=== PATIENT | female | born 2005 | race Caucasian/White ===

== ENCOUNTER 2024-12-15 12:25 | Outpatient (REF) | payer BC, SELFPAY ==
--- OUTSIDE RECORDS SUMMARY | 2024-12-15 11:00 | XMS_ITS | Encounter Summary ---
Author Organization [facility] Address [address] [place] [address] Care Team Providers Care Maitre D' Name Role Phone Jailene Jacobson MD Primary Care Provider [phone] Reason for Visit * Reason Comments Gynecologic Exam Encounter Details Date Type Department Care Team (Latest Contact Info) Description 12/15/2024 11:00 AM EDT Procedure Visit [facility] [address] [place] [address] Naima Qiu PA [address] [facility] [address] [facility] [address] [place], [facility]11 Well woman exam with routine gynecological exam; UTI symptoms; Encounter for initial prescription of contraceptive pills Social History Tobacco Use Types Packs/Day Years Used Date Smoking Tobacco: Never Smokeless Tobacco: Never Alcohol Use Standard Drinks/Week Comments Never 0 (1 standard drink = 0.6 oz pur e alcohol) Comments No Sex and Gender Information Value Date Recorded Sex Assigned at Not on file Legal Sex Female 7:01 PM EDT Gender Identity Not on file Sexual Orientation Not on file documented as of this encounter Last Filed Vital Signs Vital Sign Reading Time Taken Comments Blood Pressure 110/62 12/15/2024 11:08 AM EDT Pulse - - Temperature - - Respiratory Rate - - Oxygen Saturation - - Inhaled Oxygen Concentration - - Weight 59.9 kg (132 lb) 12/15/2024 11:08 AM EDT Height 162.6 cm (5' 4 ) 12/15/2024 11:08 AM EDT Body Mass Index 22.66 12/15/2024 11:08 AM EDT documented in this encounter Progress Notes * LAYLA Woodward - 12/15/2024 11:00 AM EDT Reason for Appointment: Patient ID: Minda Daniels is a 19 y.o. female who presents for Gynecologic Exam Patient presents today for Annual Exam. MEDICATIONS Current Outpatient Medications Medication Instructions triamcinolone (Kenalog) 0.1 % cream 1 application , Topical, 2 times daily ALLERGIES Allergies Allergen Reactions Omnicef [Cefdinir] Hives PROBLEMS Active Ambulatory Problems Diagnosis Date Noted No Active Ambulatory Problems Resolved Ambulatory Problems Diagnosis Date Noted No Resolved Ambulatory Problems Past Medical History: Diagnosis Date IUD contraception 11/25/2022 HISTORY PAST MEDICAL HISTORY SOCIAL HISTORY Past Medical History: Diagnosis Date IUD contraception 11/25/2022 MIRENA Social History Tobacco Use Smoking status: Never Smokeless tobacco: Never Substance Use Topics Alcohol use: Never Drug use: Never FAMILY HISTORY No family history on file. SURGICAL HISTORY History reviewed. No pertinent surgical history. REVIEW OF SYSTEMS Review of Systems: Review of Systems All other systems reviewed and are negative. OBJECTIVE Objective: Physical Exam Constitutional: Appearance: Normal appearance. She is well-developed. Genitourinary: Vulva normal. Right Adnexa: not tender and no mass present. Left Adnexa: not tender and no mass present. No cervical discharge. Breasts: Breasts are soft. Right: Normal. Left: Normal. HENT: Head: Normocephalic. Nose: Nose normal. Mouth/Throat: Mouth: Mucous membranes are moist. Cardiovascular: Rate and Rhythm: Normal rate and regular rhythm. Pulmonary: Effort: Pulmonary effort is normal. Breath sounds: Normal breath sounds. Abdominal: General: Bowel sounds are normal. There is no distension. Palpations: Abdomen is soft. Tenderness: There is no abdominal tenderness. There is no guarding or rebound. Musculoskeletal: General: No swelling. Normal range of motion. Cervical back: Normal range of motion. Right lower leg: No edema. Left lower leg: No edema. Neurological: General: No focal deficit present. Mental Status: She is alert and oriented to person, place, and time. Skin: General: Skin is warm and dry. Psychiatric: Mood and Affect: Mood normal. Behavior: Behavior normal. Vitals and nursing note reviewed. Exam conducted with a revenue cycle administrator present. Vitals: Estimated body mass index is 22.66 kg/m?? as calculated from the following: Height as of this encounter: 5' 4 . Weight as of this encounter: 132 lb. BP: 110/62 No LMP recorded (lmp unknown). (Menstrual status: IUD). ASSESSMENT & PLAN ICD-10-CM 1. Well woman exam with routine gynecological exam Z01.419 Pap Smear Annual Exam: Patient presents today for an annual exam. Patient states she is doing well and has no complaints. Pap was obtained without difficulty. Patient currently has an IUD and will be having it removed in December. Pt wants to talk about oral b/c and considering to get on the pill while waiting for the IUD to come out. Script sent in for control and she is having UTI symptoms and we will send scrip t in for her. Follow Up: Patient is to return in one year for annual unless needed otherwise. Documented by Lelia Morin LPN on behalf of: LAYLA Woodward documented in this encounter Plan of Treatment Upcoming Encounters Date Type Department Care Team (Late st Contact Info) Description 01/09/2025 9:30 AM EST Procedure Visit [facility] [address] [place] [id number] Bernard Lemons DO [address] [facility] [address] [place], [place] [id number] Scheduled Orders Name Type Priority Associated Diagnoses Orde r Schedule Pap Smear Pathology and Cytology Routine Well woman exam with routine gynecological exam Ordered: 12/15/2024 Urine culture Microbiology Routine UTI symptoms Ordered: 12/15/2024 documented as of this encounter Procedures Procedure Name Priority Date/Time Associated Diagnosis Comments POCT URINALYSIS DIPSTICK Routine 12/15/2024 11:41 AM EDT UTI symptoms documented in this encounter Results * POCT urinalysis dipstick manually resulted (12/15/2024 11:41 AM EDT) Color, UA Yellow Clarity, UA Clear Glucose, UA Negative Negative - 2000(110) ++++ mg/dL Bilirubin, UA Negative Negative - 4(70) +++ mg/dL Ketones, UA Negative Negative - 160(16) ++++ mg/dL Spec Grav, UA 1.015 1 - 1.03 Blood, UA Negative Negative - 50 Bhupendra/mcL pH, UA 7.0 5 - 9 Protein, UA Negative Negative - 2000(20) ++++ mg/dL Urobilinogen, UA 1.0 0.2 - 12 mg/dL Leukocytes, UA Negative Negative - 500+++ Gildardo/mcL Nitrite, UA Negative Negative - Positive Urine 12/15/2024 11:4 1 AM EDT Naima RICH POINT OF CARE TEST ENTER/EDIT OR DERABLES Final Result documented in this encounter Visit Diagnoses Diagnosis Well woman exam with routine gynecological exam Routine gynecological examination UTI symptoms Encounter for initial prescription of contraceptive pills documented in this encounter Care Teams Maitre D' Relationship Specialty Start Date End Date Jailene Jacobson MD [address] [place] [phone] PCP - General Family Medicine 09/18/22 documented as of this encounter
--- OUTSIDE RECORDS SUMMARY | 2024-12-15 12:31 | XMS_ITS | Clinical Summary ---
Author Organization [facility] Address [address] [facility] [place] [address] Care Team Providers Care Deck Engineer Name Role Phone Jailene Jacobson MD Primary Care Provider [phone] Allergies Active Allergy Reactions Criticality Noted Date Comments Cefdinir Hives 09/18/2022 Medications triamcinolone (Kenalog) 0.1 % cream Apply 1 application topically in the morning and 1 application before bedtime. 3 Active norgestimate-ethi nyl estradiol (Sprintec 28) 0.25-35 MG-MCG tabletIndications :Encounter for initial prescription of contraceptive pills Take 1 tablet by mouth Daily Take 1 tablet by mouth daily 28 tablet 11 5 025 Active phenazopyridine (Pyridium) 100 MG tabletIndications :UTI symptoms Take 1 tablet (100 mg) by mouth 3 (three) times a day as needed for bladder spasms for up to 2 days 6 tablet 5 025 Active cephalexin (Keflex) 500 MG capsuleIndication s:UTI symptoms Take 1 capsule (500 mg) by mouth in the morning and 1 capsule (500 mg) in the evening and 1 capsule (500 mg) before bedtime. Do all this for 7 days. 21 capsule 5 025 Active Hospital, Clinic, or Other Facility Administered Medication Ordered Dose Route Frequency Start Date End Date Status Levonorgestrel intrauterine device 52 mgIndications:Encounter for insertion of Mirena IUD 52 mg IU Continuous 11/25/2022 A ctive Active Problems No known active problems Encounters Date Type Department Care Team Description 12/15/2024 11:00 AM EDT Procedure Visit [facility] [address] [place] [phone] Naima Qiu PA Well woman exam with routine gynecological exam; UTI symptoms; Encounter for initial prescription of contraceptive pills 12/15/2024 Bamboo flowsheet [facility] [address] [place] [address] [place] [phone] Naima Qiu PA from Last 3 Months Social History Tobacco Use Types Packs/Day Years Used Date Smoking Tobacco: Never Smokeless Tobacco: Never Tobacco Cessation:Counseling Given: Not Answered Alcohol Use Standard Drinks/Week Comments Never 0 (1 standard drink = 0.6 oz pur e alcohol) Comments No Sex and Gender Information Value Date Recorded Sex Assigned at Not on file Legal Sex Female 7:01 PM EDT Gender Identity Not on file Sexual Orientation Not on file Last Filed Vital Signs Vital Sign Reading Time Taken Comments Blood Pressure 110/62 12/15/2024 11:08 AM EDT Pulse 150 11/24/2023 6:30 PM EDT Temperature 36.4 C (97.5 F) 11/24/2023 6:30 PM EDT Respiratory Rate - - Oxygen Saturation 98% 11/24/2023 6:30 PM EDT Inhaled Oxygen Concentration - - Weight 59.9 kg (132 lb) 12/15/2024 11:08 AM EDT Height 162.6 cm (5' 4 ) 12/15/2024 11:08 AM EDT Body Mass Index 22.66 12/15/2024 11:08 AM EDT Plan of Treatment Upcoming Encounters Date Type Department Care Team (Late st Contact Info) Description 01/09/2025 9:30 AM EST Procedure Visit [facility] [address] [place] [address] [place] [phone] Bernard Lemons DO [address] [place] [address] [address] [place], [place] [id number] Procedures Procedure Name Priority Date/Time Associated Diagnosis Comments POCT URINALYSIS DIPSTICK Routine 12/15/2024 11:41 AM EDT UTI symptoms from Last 3 Months Results * POCT urinalysis dipstick manually resulted [...] CARE TEST ENTER/EDIT OR DERABLES Final Result from Last 3 Months Insurance [facility] Care Teams Deck Engineer Relationship Specialty Start Date End Date Jailene Jacobson MD [address] [facility] [place] [address] PCP - General Family Medicine 09/18/22
[2024-12-20 12:09] LABS: Age Gdln ACOG Testing Note (.); IGP, rfx Aptima HPV ASCU Note (.)
== END 2024-12-15 12:26 | disposition home or self-care (01) ==
LOC: LAB 12:25
PROVIDERS: Visit Provider Physician Assistant
DX: Z01.419 Encounter for gynecological examination (general) (routine) without abnormal findings (principal)
CPT/HCPCS: 88175